=== PATIENT | male | born 1955 | race Caucasian/White ===

== ENCOUNTER 2016-06-15 19:59 | Emergency (ER) | payer MEDICARE | END 2016-06-15 21:55 | disposition home or self-care (01) | LOC: ER1 19:59 | DX: S90.32XA Contusion of left foot, initial encounter (principal); M10.9 Gout, unspecified; E11.9 Type 2 diabetes mellitus without complications; I10 Essential (primary) hypertension; Z88.5 Allergy status to narcotic agent; W20.8XXA Other cause of strike by thrown, projected or falling object, initial encounter; Y92.009 Unspecified place in unspecified non-institutional (private) residence as the place of occurrence of the external cause | CPT/HCPCS: 73630; 90471; 90714; 99283 ==